=== PATIENT | male | born 1980 | race African-American/Black ===

== ENCOUNTER 2025-03-13 11:54 | Emergency (ER) | payer MEDICAID, OTHER ==
[~2025-03-13] VITALS: Ht 177.8 cm; Wt 88.0 kg
[2025-03-13 11:57] VITALS: PULSE 102; RESP 18; O2SAT 99
[2025-03-13 11:59] VITALS: BP 156/96; TEMP 36.8; O2SAT 99
[2025-03-13] MEDS ORDERED: IBUP-2028 MT (13:35)
[2025-03-13] MEDS ORDERED: TOPUD PO (13:35)
[2025-03-13] MEDS ORDERED: ACETAMINOPHEN 325MG TABLET PO ONE (14:00)
[2025-03-13] MEDS ORDERED: IBUPROFEN 400MG TABLET PO ONE (14:00)
== END 2025-03-13 14:22 | disposition home or self-care (01) ==
LOC: ER 11:54
DX: S93.402A Sprain of unspecified ligament of left ankle, initial encounter (principal); M25.572 Pain in left ankle and joints of left foot; Z87.891 Personal history of nicotine dependence; Z88.0 Allergy status to penicillin; X58.XXXA Exposure to other specified factors, initial encounter; Y93.89 Activity, other specified; Y92.89 Other specified places as the place of occurrence of the external cause; Y99.8 Other external cause status
CPT/HCPCS: 73610; 99283; A6449; Z7610